=== PATIENT | male | born 1970 | race Two or more races ===

== ENCOUNTER 2020-12-01 11:35 | Emergency (ER) | payer BC ==
[~2020-12-01] VITALS: Ht 185.4 cm; Wt 90.9 kg
[2020-12-01 13:00] VITALS: BP 133/66
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
[2020-12-01] MEDS ORDERED: AMOX1TAB61 PO (14:44)
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
== END 2020-12-01 14:53 | disposition home or self-care (01) ==
LOC: ER 11:35
DX: S02.2XXA Fracture of nasal bones, initial encounter for closed fracture (principal); S20.20XA Contusion of thorax, unspecified, initial encounter; S06.0X0A Concussion without loss of consciousness, initial encounter; R42 Dizziness and giddiness; H53.8 Other visual disturbances; R91.1 Solitary pulmonary nodule; Y08.89XA Assault by other specified means, initial encounter; Y93.89 Activity, other specified; Y92.89 Other specified places as the place of occurrence of the external cause; Y99.8 Other external cause status
CPT/HCPCS: 70450; 70486; 71250; 72125; 72128; 99285

== ENCOUNTER → 2020-12-30 | Outpatient (CLI) | payer BC ==
[2020-12-01 13:00] VITALS: BP 133/66
[~2020-12-30] MED LIST: AMOX1TAB61 PO
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
== END ==
LOC: KCIC MRI 12:19
PROVIDERS: ATTEND Nurse Practitioner Family
DX: S06.0X9A Concussion with loss of consciousness of unspecified duration, initial encounter (principal); X58.XXXA Exposure to other specified factors, initial encounter; Y93.89 Activity, other specified; Y92.89 Other specified places as the place of occurrence of the external cause; Y99.8 Other external cause status
CPT/HCPCS: 70551